=== PATIENT | female | born 1970 | race Caucasian/White ===

== ENCOUNTER 2016-06-07 13:15 | Observation (INO) ==
--- NOTE | 2016-06-07 13:35 | Emergency Department Note ---
Disposition Clinical Impression: Dehydration Disposition: Admitted As Inpatient Condition: Fair General Adult HPI - General Chief complaint: ED General Medical Stated complaint: ale, called out as diab jannet Source: patient Limitations: other Nursing Notes Reviewed: Yes Vital Signs Reviewed: Yes - History of Present Illness HPI Narrative: Patient is a 45-year-old female who resides a local skilled nursing. She was sent in by [facility] due to weakness. Initial call to [facility] was diabetic emergency. Glucose normal however patient is not a good historian due to developmental disorder. She states she felt better after a warm blanket was provided by [employer]. Caregiver states typically the patient does walk and has been ill the last 2 days. Onset (ago): day(s) Pain Scale: 0 - Related Data Home Medications Medication Instructions Recorded Confirmed Amantadine HCl [Amantadine] 100 mg PO 08/30/15 06/07/16 Amantadine [Symmetrel] 200 mg PO [facility] 08/30/15 06/07/16 Aspirin [Adult Low Dose Aspirin EC] 81 mg PO DAILY 08/30/15 06/07/16 Benztropine [Cogentin] 1 mg PO 08/30/15 06/07/16 Divalproex (24 HR) [Depakote ER 1,500 mg PO 08/30/15 06/07/16 (24 HR)] Emtricitabine/Tenofovir [Truvada] 1 each PO DAILY 08/30/15 06/07/16 Hydroxyzine HCl 50 mg PO TID 08/30/15 06/07/16 Metformin HCl [Fortamet] 1,000 mg PO BID 08/30/15 06/07/16 Mv,Fe,Min/Gr Tea Lfxt [Pv Daily 1 each PO DAILY 08/30/15 06/07/16 Multiple Tablet] Propranolol [Inderal] 20 mg PO BID 08/30/15 06/07/16 Trazodone HCl [TraZODone] 100 mg PO 08/30/15 06/07/16 Vitamin E Acid Succinate [Vitamin 400 units PO DAILY 08/30/15 06/07/16 E] FLUoxetine HCl [Fluoxetine HCl] 10 mg PO DAILY 06/07/16 06/07/16 Ziprasidone HCl [Geodon] 40 mg PO QAM 06/07/16 06/07/16 Ziprasidone HCl [Geodon] 60 mg PO 06/07/16 06/07/16 Previous Rx's Medication Instructions Recorded Insulin Glargine,Hum.rec.anlog 10 unit SQ DAILY #0 11/08/15 [Lantus Solostar] Ibuprofen [Motrin] 800 mg PO TID #15 tablet 02/22/16 Allergies Allergy/AdvReac Type Severity Reaction Status Date / Time No Known Allergies Allergy Verified 08/30/15 10:25 All systems ED: reviewed and negative except as stated. Past Medical History - Past Medical History Medical history: Reports: diabetes, hyperlipidemia, hypertension, seizures, TIA , other Psychiatric history: Reports: anxiety, bipolar, depression, schizophrenia HAND CANDLE MOLDER history: Reports: no HAND CANDLE MOLDER history - Social History Smoking Status: Current every day smoker Smokeless Tobacco Status: No Alcohol use: Reports: none Drug use: Reports: none Physical Exam - General Limitations: other General appearance: alert - Head Head exam: atraumatic - Eye Eye exam: Present: normal appearance - ENT ENT exam: mucous membranes dry - Neck Neck exam: Present: normal inspection - Chest Chest inspection: Present: normal inspection - Respiratory Respiratory exam: Present: normal lung sounds bilaterally - Cardiovascular Cardiovascular exam: Present: regular rate, normal rhythm - Abdominal Exam Abdominal exam: Present: soft, Non-Tender - Extremities Exam Extremities exam: Present: normal inspection - Expanded Lower Extremity Exam Hip/Pelvis exam: Present: normal inspection Gait: unable to bear weight - Back Exam Back exam: Present: normal inspection - Neurological Exam Neurological exam: Present: alert - Psychiatric Psychiatric exam: Present: normal affect - Skin Skin exam: Present: warm, dry Course Vital Signs Temperature 98.1 F 06/07/16 13:19 Pulse Rate 75 06/07/16 13:19 Respiratory Rate 18 06/07/16 13:19 Blood Pressure 156/82 06/07/16 13:19 O2 Sat by Pulse Oximetry 99 06/07/16 13:19 Temperature 98.3 F 06/07/16 19:04 Pulse Rate 57 06/07/16 19:04 Respiratory Rate 20 06/07/16 19:04 Blood Pressure 142/82 06/07/16 19:04 O2 Sat by Pulse Oximetry 95 06/07/16 19:04 Oxygen Delivery Oxygen Delivery Nasal Cannula Medical Decision Making - MDM Narrative Medical decision making narrative: Differential: Pneumonia versus dehydration versus urinary tract infection - Lab Data Lab results reviewed: Yes I reviewed the patient's lab results. Result diagrams: 06/07/16 13:49 06/07/16 13:49 Lab Results 06/07/16 06/07/16 06/07/16 Range/Units 13:49 13:49 13:49 WBC 7.5 (4.3-11.1) K/mcL RBC 3.76 L (3.82-4.97) M/mcL Hgb 11.2 L (11.5-15.4) g/dL Hct 32.5 L (35.3-44.9) % MCV 86.4 (83.0-100.0) fL MCH 29.8 (28.0-33.3) pg MCHC 34.5 (31.6-35.5) g/dL RDW 13.3 (11.5-14.5) % Plt Count 154 (140-400) K/mcL MPV 9.1 L (9.4-12.4) fL Immature Gran % 0.5 (0-4) % Seg Neutrophils % 65.4 % Lymphocytes % 18.9 % Monocytes % 14.1 % Eosinophils % 0.8 % Basophils % 0.3 % Neutrophils # 4.9 (1.6-8.9) K/mcL Lymphocytes # 1.4 (0.6-4.6) K/mcL Monocytes # 1.1 (0.0-1.3) K/mcL Eosinophils # 0.1 (0.0-0.6) K/mcL Basophils # 0.0 (0.0-0.2) K/mcL PT 12.7 H (9.4-12.1) Seconds INR 1.2 Sodium 139 (136-145) mEq/L Potassium 4.4 (3.5-4.5) mEq/L Chloride 101 (98-109) mEq/L Carbon Dioxide 26 (19-29) mEq/L BUN 20 (7-20) mg/dL Creatinine 0.75 (0.57-1.11) mg/dL Est GFR ( Amer) > 60 (> 60) Est GFR (Non-Af Amer) > 60 (> 60) BUN/Creatinine Ratio 27 H (6-26) Glucose 164 H (70-99) mg/dL Calculated Osmolality 294 (280-300) Calcium 9.5 (8.6-10.8) mg/dL Total Bilirubin 0.5 (0.2-1.2) mg/dL AST 38 H (5-34) Units/L ALT 42 (0-55) Units/L Alkaline Phosphatase 86 (38-126) Units/L Troponin I (0-0.03) ng/mL Serum Total Protein 6.6 (6.0-8.3) g/dL Albumin 3.3 L (3.5-5.0) g/dL Globulin 3.3 (2.4-3.5) g/dL Albumin/Globulin Ratio 1.0 L (1.1-2.2) TSH (0.350-4.840) mcIU/mL Urine Color (Yellow) Urine Clarity (Clear) Urine pH (5.0-8.0) pH Units Ur Specific [place] (1.010-1.025) Urine Protein (Neg-Trace) mg/dL Urine Glucose (UA) (Normal) mg/dL Urine Ketones (Negative) mg/dL Urine Blood (Negative) Urine Nitrite (Negative) Urine Bilirubin (Negative) Urine Urobilinogen (Normal) mg/dL Ur Leukocyte Esterase (Negative) Urine Microscopic RBC (0-3) per hpf Urine Microscopic WBC (0-3) per hpf Ur Squamous Epith Cells (None-Few) per lpf Urine Bacteria (None-Few) per hpf Hyaline Casts (None-Few) per lpf Urine Mucus (Few) Ur Culture Indicated? (NO) Urine Test (Negative) Valproic Acid (50-100) mcg/mL 06/07/16 06/07/16 06/07/16 Range/Units 13:49 13:49 13:49 WBC (4.3-11.1) K/mcL RBC (3.82-4.97) M/mcL Hgb (11.5-15.4) g/dL Hct (35.3-44.9) % MCV (83.0-100.0) fL MCH (28.0-33.3) pg MCHC (31.6-35.5) g/dL RDW (11.5-14.5) % Plt Count (140-400) K/mcL MPV (9.4-12.4) fL Immature Gran % (0-4) % Seg Neutrophils % % Lymphocytes % % Monocytes % % Eosinophils % % Basophils % % Neutrophils # (1.6-8.9) K/mcL Lymphocytes # (0.6-4.6) K/mcL Monocytes # (0.0-1.3) K/mcL Eosinophils # (0.0-0.6) K/mcL Basophils # (0.0-0.2) K/mcL PT (9.4-12.1) Seconds INR Sodium (136-145) mEq/L Potassium (3.5-4.5) mEq/L Chloride (98-109) mEq/L Carbon Dioxide (19-29) mEq/L BUN (7-20) mg/dL Creatinine (0.57-1.11) mg/dL Est GFR ( Amer) (> 60) Est GFR (Non-Af Amer) (> 60) BUN/Creatinine Ratio (6-26) Glucose (70-99) mg/dL Calculated Osmolality (280-300) Calcium (8.6-10.8) mg/dL Total Bilirubin (0.2-1.2) mg/dL AST (5-34) Units/L ALT (0-55) Units/L Alkaline Phosphatase (38-126) Units/L Troponin I 0.01 (0-0.03) ng/mL Serum Total Protein (6.0-8.3) g/dL Albumin (3.5-5.0) g/dL Globulin (2.4-3.5) g/dL Albumin/Globulin Ratio (1.1-2.2) TSH 2.375 (0.350-4.840) mcIU/mL Urine Color (Yellow) Urine Clarity (Clear) Urine pH (5.0-8.0) pH Units Ur Specific [place] (1.010-1.025) Urine Protein (Neg-Trace) mg/dL Urine Glucose (UA) (Normal) mg/dL Urine Ketones (Negative) mg/dL Urine Blood (Negative) Urine Nitrite (Negative) Urine Bilirubin (Negative) Urine Urobilinogen (Normal) mg/dL Ur Leukocyte Esterase (Negative) Urine Microscopic RBC (0-3) per hpf Urine Microscopic WBC (0-3) per hpf Ur Squamous Epith Cells (None-Few) per lpf Urine Bacteria (None-Few) per hpf Hyaline Casts (None-Few) per lpf Urine Mucus (Few) Ur Culture Indicated? (NO) Urine Test (Negative) Valproic Acid 66.3 (50-100) mcg/mL 06/07/16 06/07/16 Range/Units 15:10 15:10 WBC (4.3-11.1) K/mcL RBC (3.82-4.97) M/mcL Hgb (11.5-15.4) g/dL Hct (35.3-44.9) % MCV (83.0-100.0) fL MCH (28.0-33.3) pg MCHC (31.6-35.5) g/dL RDW (11.5-14.5) % Plt Count (140-400) K/mcL MPV (9.4-12.4) fL Immature Gran % (0-4) % Seg Neutrophils % % Lymphocytes % % Monocytes % % Eosinophils % % Basophils % % Neutrophils # (1.6-8.9) K/mcL Lymphocytes # (0.6-4.6) K/mcL Monocytes # (0.0-1.3) K/mcL Eosinophils # (0.0-0.6) K/mcL Basophils # (0.0-0.2) K/mcL PT (9.4-12.1) Seconds INR Sodium (136-145) mEq/L Potassium (3.5-4.5) mEq/L Chloride (98-109) mEq/L Carbon Dioxide (19-29) mEq/L BUN (7-20) mg/dL Creatinine (0.57-1.11) mg/dL Est GFR ( Amer) (> 60) Est GFR (Non-Af Amer) (> 60) BUN/Creatinine Ratio (6-26) Glucose (70-99) mg/dL Calculated Osmolality (280-300) Calcium (8.6-10.8) mg/dL Total Bilirubin (0.2-1.2) mg/dL AST (5-34) Units/L ALT (0-55) Units/L Alkaline Phosphatase (38-126) Units/L Troponin I (0-0.03) ng/mL Serum Total Protein (6.0-8.3) g/dL Albumin (3.5-5.0) g/dL Globulin (2.4-3.5) g/dL Albumin/Globulin Ratio (1.1-2.2) TSH (0.350-4.840) mcIU/mL Urine Color Yellow (Yellow) Urine Clarity Slightly Cloudy A (Clear) Urine pH 5.5 (5.0-8.0) pH Units Ur Specific [place] >= 1.030 H (1.010-1.025) Urine Protein Trace (Neg-Trace) mg/dL Urine Glucose (UA) 250 H (Normal) mg/dL Urine Ketones 80 H (Negative) mg/dL Urine Blood Negative (Negative) Urine Nitrite Negative (Negative) Urine Bilirubin Small H (Negative) Urine Urobilinogen Normal (Normal) mg/dL Ur Leukocyte Esterase Negative (Negative) Urine Microscopic RBC 0-3 (0-3) per hpf Urine Microscopic WBC 0-3 (0-3) per hpf Ur Squamous Epith Cells Few (None-Few) per lpf Urine Bacteria Few (None-Few) per hpf Hyaline Casts Few (None-Few) per lpf Urine Mucus Many H (Few) Ur Culture Indicated? NO (NO) Urine Test Negative (Negative) Valproic Acid (50-100) mcg/mL - Radiology Data Radiology results reviewed: Yes I reviewed the patient's radiology results. ITS Impressions Chest X-Ray 06/07/16 13:32 IMPRESSION: Low lung volumes with no definite acute cardiopulmonary findings. D/ / Francesca Jarvis MD / Francesca Jarvis MD Interpreting Provider: Francesca Jarvis MD
[2016-06-07 13:55] LABS: Basophils % 0.3 %; Eosinophils # 0.1 K/mcL (0.0-0.6); Eosinophils % 0.8 %; Hematocrit 32.5 % (35.3-44.9); Hemoglobin 11.2 g/dL (11.5-15.4); Immature Granulocytes % 0.5 % (0-4); Lymphocytes # 1.4 K/mcL (0.6-4.6); Lymphocytes % 18.9 %; Mean Corpuscular HGB Conc 34.5 g/dL (31.6-35.5); Mean Corpuscular Hemoglobin 29.8 pg (28.0-33.3); Mean Corpuscular Volume 86.4 fL (83.0-100.0); Mean Platelet Volume 9.1 fL (9.4-12.4); Monocytes # 1.1 K/mcL (0.0-1.3); Monocytes % 14.1 %; Neutrophils # 4.9 K/mcL (1.6-8.9); Platelet Count 154 K/mcL (140-400); Red Blood Count 3.76 M/mcL (3.82-4.97); Red Cell Distribution Width 13.3 % (11.5-14.5); Segmented Neutrophils % 65.4 %
[2016-06-07 14:05] LABS: INR 1.2; Prothrombin Time 12.7 Seconds (9.4-12.1)
[2016-06-07 14:11] LABS: Alanine Aminotransferase 42 Units/L (0-55); Albumin 3.3 g/dL (3.5-5.0); Alkaline Phosphatase 86 Units/L (38-126); Aspartate Amino Transferase 38 Units/L (5-34); BUN/Creatinine Ratio 27 (6-26); Bilirubin,Total 0.5 mg/dL (0.2-1.2); Blood Urea Nitrogen 20 mg/dL (7-20); Calcium 9.5 mg/dL (8.6-10.8); Carbon Dioxide 26 mEq/L (19-29); Chloride 101 mEq/L (98-109); Globulin 3.3 g/dL (2.4-3.5); Glucose 164 mg/dL (70-99); Osmolality,Calculated 294 (280-300); Potassium 4.4 mEq/L (3.5-4.5); Sodium 139 mEq/L (136-145); Total Protein 6.6 g/dL (6.0-8.3); eGFR For African Americans > 60 (> 60); eGFR For Non-African Americans > 60 (> 60)
[2016-06-07] MEDS ORDERED: 0.9 % Sodium Chloride 500 ML IVC ONE (14:25)
--- NOTE | 2016-06-07 14:52 | Electrocardiograph Report ---
[address] [address] Test Date: 2016-06-07 Pat Name: Evi Osman Department: [id number] Room: Gender: F Framing Carpenter: : 1970 Requested By: Pipo Eden Order Number: [id number] Reading MD: Dai Alejandro Measurements Intervals [place] Rate: 72 P: 31 OH: 125 QRS: 6 QRSD: 80 T: 195 QT: 328 QTc: 351 Interpretive Statements SINUS RHYTHM NONSPECIFIC ST \T\ T-WAVE ABNORMALITY Electronically Signed On 06-07-2016 14:51:40 EST by Dai Alejandro
[2016-06-07 15:21] LABS: Bilirubin,Urine Small (Negative); Blood,Urine Negative (Negative); Clarity,Urine Slightly Cloudy (Clear); Color,Urine Yellow (Yellow); Glucose,Urine (UA) 250 mg/dL (Normal); Ketones,Urine 80 mg/dL (Negative); Leukocyte Esterase,Urine Negative (Negative); Nitrite,Urine Negative (Negative); PH,Urine 5.5 pH Units (5.0-8.0); Protein,Urine Trace mg/dL (Neg-Trace); Specific Gravity,Urine >= 1.030 (1.010-1.025); Urobilinogen,Urine Normal (Normal)
[2016-06-07 15:33] LABS: Bacteria,Urine Few per hpf (None-Few); Hyaline Casts,Urine Few per lpf (None-Few); Mucus,Urine Many (Few); RBC,Urine 0-3 per hpf (0-3); Squamous Epithelial Cell,Urine Few per lpf (None-Few); WBC,Urine 0-3 per hpf (0-3)
[2016-06-07] MEDS ORDERED: Ziprasidone 20 MG CAPSULE PO SCH (21:00)
[2016-06-07] MEDS: 0.9 % Sodium Chloride 1,000 ML IVC SCH (21:03)
[2016-06-08] MEDS: *HR* Metformin 500 MG TABLET PO SCH ×3 (03:20→20:28)
[2016-06-08] MEDS: Divalproex (24 HR) 500 MG TABLET PO SCH ×2 (03:20→23:24)
[2016-06-08] MEDS: 0.9 % Sodium Chloride 1,000 ML IVC SCH ×2 (05:14→15:31)
[2016-06-08] MEDS ORDERED: *HR* Dextrose 50 % in Water (Syg) 50 ML SYRINGE IVP PRN (05:19)
[2016-06-08] MEDS ORDERED: Dextrose Gel 15 GM PO PRN ×2 (05:19)
[2016-06-08] MEDS ORDERED: D5% in Water 1,000 ML IV PRN (05:19)
[2016-06-08] MEDS: Ziprasidone 20 MG CAPSULE PO SCH ×2 (08:28→20:29)
[2016-06-08] MEDS: FLUoxetine HCl 10 MG CAPSULE PO SCH (08:28)
[2016-06-08] MEDS: Aspirin Enteric Coated 81 MG Tablet PO SCH (08:29)
[2016-06-08] MEDS: Insulin LISPRO 300 UNITS/3 ML VIAL SQ SCH ×4 (08:36→23:24)
[2016-06-08] MEDS: Insulin DETEMIR 100 UNIT/ML X5UNITS SQ SCH (10:11)
--- NOTE | 2016-06-08 16:21 | Internal Med History&Physical ---
Date of Encounter: 06/08/16 Time of Encounter: 15:55 Assessment and Plan (1) Dehydration Current visit: Yes Status: Acute She has been started on IV fluids. She appears to be possibly overmedicated so medication doses of psychiatric drugs will be reviewed and adjusted. Further work up will be done as needed. (2) DM type 2 (diabetes mellitus, type 2) Current visit: Yes Status: Chronic We will check hemoglobin A1c in a.m. 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 Osman is a 45 year old female who was sent to emergency room from a local [facility] after staff reported her to have weakness. She was evaluated in emergency room and felt to have dehydration. She was admitted to [facility] floor for ongoing care needs. She could not give additional reliable history at this time. She was hospitalized last at [facility] November 2015 with hypoglycemia. Past Med Surg Social Fam HX - Past Medical History Medical history: diabetes, hyperlipidemia, hypertension, seizures, TIA, other Psychiatric history: anxiety, bipolar, depression, schizophrenia - Past Surgical History Surgical History: other - Social History Smoking Status: Current every day smoker Smokeless Tobacco Status: No Alcohol use: none Drug use: none - Family History Father Hx Family Endocrine Disorder: Yes Internal Medicine - H&P: Meds Amantadine HCl [Amantadine] 100 mg PO HS 08/30/15 [History] Amantadine [Symmetrel] 200 mg PO QAM 08/30/15 [History] Aspirin [Adult Low Dose Aspirin EC] 81 mg PO DAILY 08/30/15 [History] Benztropine [Cogentin] 1 mg PO HS 08/30/15 [History] Divalproex (24 HR) [Depakote ER (24 HR)] 1,500 mg PO HS 08/30/15 [History] Emtricitabine/Tenofovir [Truvada] 1 each PO DAILY 08/30/15 [History] Hydroxyzine HCl 50 mg PO TID 08/30/15 [History] Metformin HCl [Fortamet] 1,000 mg PO BID 08/30/15 [History] Mv,Fe,Min/Gr Tea Lfxt [Pv Daily Multiple Tablet] 1 each PO DAILY 08/30/15 [ History] Propranolol [Inderal] 20 mg PO BID 08/30/15 [History] Trazodone HCl [TraZODone] 100 mg PO HS 08/30/15 [History] Vitamin E Acid Succinate [Vitamin E] 400 units PO DAILY 08/30/15 [History] Insulin Glargine,Hum.rec.anlog [Lantus Solostar] 10 unit SQ DAILY #0 11/08/15 [ Rx] Ibuprofen [Motrin] 800 mg PO TID #15 tablet 02/22/16 [Rx] FLUoxetine HCl [Fluoxetine HCl] 10 mg PO DAILY 06/07/16 [History] Ziprasidone HCl [Geodon] 40 mg PO QAM 06/07/16 [History] Ziprasidone HCl [Geodon] 60 mg PO HS 06/07/16 [History] Allergies No Known Allergies Allergy (Verified 08/30/15 10:25) All Systems PM: A 10-system review of systems was performed and is negative for pertinent findings except as documented above in the HPI. Review of systems: Review of systems from the November 2015 hospitalization were reviewed and revised as below. Gen.: Her weight has decreased from 67.9 kg at the November 2015 hospitalization to 62.27 kg at present.. Cardiovascular: She has history of hypertension but denies OR heart failure DVT or pulmonary embolus. Respiratory: She smoked since age 23 up to 3 packs per day. She is unaware of any chronic lung disease diagnoses GI: She denies disorders of her liver gallbladder or exocrine pancreas. : She has had kidney stones diagnosed in the past. She denies other kidney or bladder disorders Neurologic: She has migraine headaches. She has history of seizures. She denies large distribution strokes Endocrine: She was diagnosed with DM 2 at age 30. She has hyperlipidemia but no known thyroid disease. Hematology/oncology: She is unaware of any blood disorders or internal malignancies Psychiatric: She claims a diagnosis of depression. [place] skeletal: She denies arthritis gout or other bone joint or muscle disorders. Infectious disease: She is uncertain if she has a diagnosis of HIV but she does use Truvada - Constitutional Vitals: Temp Pulse Resp BP Pulse Ox 96.6 F L 61 20 177/94 94 L 06/08/16 15:41 06/08/16 15:41 06/08/16 15:41 06/08/16 15:41 06/08/16 15:41 Exam: Gen.: She is a well-developed well-nourished female lying in bed who appears in no severe distress. She denies pain or dyspnea. HEENT: Head is atraumatic and normocephalic. Eyes: EOMI. There is no scleral icterus. Mouth: Mucosa is moist. Neck: Supple and nontender. There is no thyromegaly or adenopathy noted. Heart: Regular without murmurs gallops or ectopics. Lungs: No wheezes or crackles are heard. Abdomen: Soft and nontender. No masses or guarding are noted. Extremities: There is no cyanosis edema or clubbing noted. Dorsalis pedis and posttibial pulses are trace palpable bilaterally. Neurologic: Mental status: She is lethargic and has difficulty answering questions. Cranial nerves: Smile is symmetric. Forehead wrinkles bilaterally. Tongue protrudes midline. EOMI. Motor: There is no pronator drift. Cerebellar: Finger to nose is intact bilaterally. Skin: Warm and dry Internal Med - H&P Results - Labs CBC & Chem 7: 06/07/16 13:49 06/07/16 13:49
[2016-06-09] MEDS ORDERED: *HR* HYDROcodone/Acet 5/325 mg TABLET PO PRN (02:23)
[2016-06-09] MEDS: Insulin LISPRO 300 UNITS/3 ML VIAL SQ SCH ×4 (08:34→20:44)
[2016-06-09] MEDS: *HR* Metformin 500 MG TABLET PO SCH ×2 (08:36→20:42)
[2016-06-09 08:40] LABS: BUN/Creatinine Ratio 48 (6-26); Blood Urea Nitrogen 28 mg/dL (7-20); Calcium 8.9 mg/dL (8.6-10.8); Carbon Dioxide 23 mEq/L (19-29); Chloride 107 mEq/L (98-109); Glucose 59 mg/dL (70-99); Osmolality,Calculated 293 (280-300); Potassium 3.6 mEq/L (3.5-4.5); Sodium 140 mEq/L (136-145); eGFR For African Americans > 60 (> 60); eGFR For Non-African Americans > 60 (> 60)
[2016-06-09 08:51] LABS: Valproate 51.7 mcg/mL (50-100)
[2016-06-09] MEDS: Insulin DETEMIR 100 UNIT/ML X5UNITS SQ SCH (09:00)
[2016-06-09] MEDS: Aspirin Enteric Coated 81 MG Tablet PO SCH (09:43)
[2016-06-09] MEDS: Ziprasidone 20 MG CAPSULE PO SCH ×2 (09:43→20:43)
[2016-06-09] MEDS: FLUoxetine HCl 10 MG CAPSULE PO SCH (09:45)
--- NOTE | 2016-06-09 12:49 | Internal Med Progress Note ---
Date of Encounter: 06/09/16 Time of Encounter: 12:35 - Assessment and plan (1) Dehydration Current Visit: Yes Status: Acute Assessment and plan: June 09. Will decrease IV fluid rate since she has wheezing. Creatinine has improved. Oral intake remains poor. (2) DM type 2 (diabetes mellitus, type 2) Current Visit: Yes Status: Chronic Assessment and plan: June 09. Hemoglobin A1c is pending. Blood sugars are satisfactory. Continue Levemir, Glucophage, and Accu-Cheks with SSI. 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 Will add lisinopril Qualifiers: Hypertension type: essential hypertension Qualified Code(s): I10 - Essential (primary) hypertension - Subjective Interval history: June 09. She is lying in bed and remains nonverbal. She appears slightly less obtunded than yesterday. - Constitutional Vitals: Temp Pulse Resp BP Pulse Ox 97.4 F L 60 24 172/97 94 L 06/09/16 11:24 06/09/16 11:24 06/09/16 11:24 06/09/16 11:24 06/09/16 11:24 Exam: Heart is regular without murmurs gallops or ectopics. Lungs show mild expiratory wheezing. Externally show no edema. I reviewed her medications and lab results. Internal Medicine: Result - Labs CBC & Chem 7: 06/07/16 13:49 06/09/16 08:10 Labs: BMP 06/09/16 08:10 Sodium 140 Potassium 3.6 Chloride 107 Carbon Dioxide 23 BUN 28 H Creatinine 0.58 Glucose 59 L Calcium 8.9 - ABG Interpretation ABG results: PT/INR, D-dimer PT 12.7 Seconds (9.4-12.1) H 06/07/16 13:49 Consult Discharge Plan - Plan Referrals: Gregory Lino MD [Primary Care Provider] - 1 week
[2016-06-09] MEDS: Lisinopril 20 MG TABLET PO SCH (13:24)
[2016-06-09 16:40] LABS: Hemoglobin A1C 7.6 %
[2016-06-09] MEDS: Divalproex (24 HR) 500 MG TABLET PO SCH (20:41)
[2016-06-10 05:48] LABS: Basophils % 0.1 %; Hematocrit 29.7 % (35.3-44.9); Hemoglobin 10.1 g/dL (11.5-15.4); Lymphocytes # 1.6 K/mcL (0.6-4.6); Lymphocytes % 11.7 %; Mean Corpuscular Volume 88.1 fL (83.0-100.0); Mean Platelet Volume 10.3 fL (9.4-12.4); Monocytes # 1.4 K/mcL (0.0-1.3); Neutrophils # 10.4 K/mcL (1.6-8.9); Platelet Count 193 K/mcL (140-400); Red Blood Count 3.37 M/mcL (3.82-4.97); Red Cell Distribution Width 13.7 % (11.5-14.5); Segmented Neutrophils % 77.2 %
[2016-06-10 06:16] LABS: BUN/Creatinine Ratio 43 (6-26); Blood Urea Nitrogen 27 mg/dL (7-20); Calcium 9.1 mg/dL (8.6-10.8); Carbon Dioxide 22 mEq/L (19-29); Chloride 105 mEq/L (98-109); Glucose 163 mg/dL (70-99); Osmolality,Calculated 301 (280-300); Potassium 3.9 mEq/L (3.5-4.5); Sodium 141 mEq/L (136-145); eGFR For African Americans > 60 (> 60); eGFR For Non-African Americans > 60 (> 60)
[2016-06-10] MEDS: Lisinopril 20 MG TABLET PO SCH (10:33)
[2016-06-10] MEDS: Aspirin Enteric Coated 81 MG Tablet PO SCH (10:33)
[2016-06-10] MEDS: FLUoxetine HCl 10 MG CAPSULE PO SCH (10:33)
[2016-06-10] MEDS: Ziprasidone 20 MG CAPSULE PO SCH (10:34)
[2016-06-10] MEDS: *HR* Metformin 500 MG TABLET PO SCH (10:34)
[2016-06-10] MEDS: Insulin LISPRO 300 UNITS/3 ML VIAL SQ SCH ×3 (10:36→18:10)
[2016-06-10] MEDS: Insulin DETEMIR 100 UNIT/ML X5UNITS SQ SCH (10:57)
--- NOTE | 2016-06-10 11:02 | Discharge Summary ---
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 Qualified Code(s): E11.9 - Type 2 diabetes mellitus without complications; Z79.4 - manager lsw (current) use of insulin (3) Hypertension Priority: Secondary Status: Chronic Qualifiers: Hypertension type: essential hypertension Qualified Code(s): I10 - Essential (primary) hypertension - Discharge Medications Prescriptions: TraZODone 50 mg PO HS #30 tablet Home Medications: Amantadine HCl [Amantadine] 100 mg PO HS 08/30/15 [History] Amantadine [Symmetrel] 200 mg PO QAM 08/30/15 [History] Aspirin [Adult Low Dose Aspirin EC] 81 mg PO DAILY 08/30/15 [History] Benztropine [Cogentin] 1 mg PO HS 08/30/15 [History] Divalproex (24 HR) [Depakote ER (24 HR)] 1,500 mg PO HS 08/30/15 [History] Metformin HCl [Fortamet] 1,000 mg PO BID 08/30/15 [History] Mv,Fe,Min/Gr Tea Lfxt [Pv Daily Multiple Tablet] 1 each PO DAILY 08/30/15 [ History] Propranolol [Inderal] 20 mg PO BID 08/30/15 [History] Vitamin E Acid Succinate [Vitamin E] 400 units PO DAILY 08/30/15 [History] Insulin Glargine,Hum.rec.anlog [Lantus Solostar] 10 unit SQ DAILY #0 11/08/15 [ Rx] FLUoxetine HCl [Fluoxetine HCl] 10 mg PO DAILY 06/07/16 [History] TraZODone 50 mg PO HS #30 tablet 06/10/16 [Rx] Ziprasidone HCl [Geodon] 40 mg PO BID #60 06/10/16 [Rx] Allergies/Adverse Reactions: Allergies No Known Allergies Allergy (Verified 08/30/15 10:25) Procedures/tests Complete & Pending: Procedures Performed prior 72 hours Category Date Time Status CT head/brain wo con [CT] Stat Cat Scan 06/09/16 14:18 Completed Date of admission: 06/07/16 15:48 Primary care physician: Gregory Lino MD - Patient Status Disposition: Home, Self-Care Condition: Fair Overall status at discharge: patient is progressing back to baseline - Discharge Instructions Follow Up With: Gregory Lino MD [Primary Care Provider] - 1 week - Diet and Activity Activity: resume usual activities as tolerated Diet: advance to your usual diet Hospital course: Ms. Osman is a 45 year old female who was sent to emergency room from a local [facility] after staff reported her to have weakness. She was evaluated in emergency room and felt to have dehydration. She was admitted to [facility] for ongoing care needs. Initial orders were written by the emergency room physician. I saw her on June 08 and performed a history and physical. She appeared overmedicated with obtundation. I discontinued her hydroxyzine. I decreased her evening dose of Geodon to 40 mg and decreased her trazodone to 50 mg at bedtime. She was much more awake and alert when I saw her on June 10. She was able to tolerate adequate amounts of food and fluid. She will be discharged back to the [facility] today on medication changes as described above. Hemoglobin A1c returned slightly elevated at 7.6%. Dr. Lino can adjust her diabetic medications as needed. Her blood pressure remained satisfactory on Inderal. She will follow with Dr. Gregory Lino at the [facility]. She also follows with mental health clinic personnel. - Time Spent with Patient Total time spent providing and/or coordinating discharge services: - Constitutional Vitals: Temp Pulse Resp BP Pulse Ox 96.9 F L 64 18 158/55 94 L 06/10/16 06:57 06/10/16 06:57 06/10/16 06:57 06/10/16 06:57 06/10/16 06:57
[2016-06-10 15:50] VITALS: BP 162/86
== END 2016-06-10 20:03 | disposition home or self-care (01) ==
LOC: EMEROOPIK 13:15 → INPPIK 13:15
PROVIDERS: ADMIT Internal Medicine; ATTEND Internal Medicine